=== PATIENT | male | born 1970 | race Caucasian/White ===

== ENCOUNTER 2018-11-19 22:04 | Observation (INO) | END 2018-11-21 15:35 | disposition home or self-care (01) ==

== ENCOUNTER 2019-03-15 02:00 | Inpatient (IN) | payer BC ==
[~2019-03-15] VITALS: Ht 162.6 cm; Wt 75.1 kg
[2019-03-15] VITALS (10 sets, daily range): BP systolic 126–141; BP diastolic 67–80; PULSE 77–127; RESP 18–20; Ht 162.6 cm; Wt 75.1 kg
[~2019-03-15 02:00] MED LIST: ALBU18HF INHALATION; LEVO500T48 PO; MOME220A2 INH; Nicotine (14 Mg/24 Hr) TRANSDERM
--- NOTE | 2019-03-15 06:02 | HP ---
Date/Time of Note Date/Time of Note DATE: 03/15/19 TIME: 05:59 Assessment/Plan VTE Prophylaxis Pharmacological prophylaxis: heparin Lines/Catheters IV Catheter Type (from [facility]): Saline Lock Assessment/Plan Assessment/Plan 49-year-old male with history of asthma transferred from outside facility for asthma exacerbation PLAN -Supplemental oxygen, bronchodilators and steroid -Chest x-ray HPI/ROS Admit Date/Time Admit Date/Time Mar 15, 2019 at 04:47 Hx of Present Illness This is a 48-year-old male with a history of asthma who initially presented to outside hospital complaining of shortness of breath and cough. He was transferred to [facility] for insurance reason. Symptom has been progressively getting worse for the past few days. Symptoms started 4 days ago and has been progressively getting worse. He was admitted by myself 4 months ago. At that time he told me that initial asthma symptoms started 10 years ago when he was in [place], but was not diagnosed with asthma until he immigrated to [place]. At that time he was unable to get Symbicort because of insurance reason and was only using albuterol. PMH/Family/Social Past Medical History Past Surgical Hx: other (see hpi) Family History Significant Family History: no pertinent family hx Social History Alcohol Use: none Smoking Status: Never smoker Drug Use: none Exam Constitutional: other (no acute distress) Neck: supple, non-tender Respiratory: normal air movement Cardiovascular: nl pulses Gastrointestinal: soft Extremities: normal pulses Coded Allergies: No Known Allergy (Unverified , 11/19/18) Social History Smoking Status: Former smoker Exam/Review of Systems Vital Signs Vitals Vital Signs Date Temp Pulse Resp B/P (MAP) Pulse Ox O2 O2 Flow FiO2 Time Delivery Rate 03/15/19 2.0 05:39 03/15/19 98.3 118 20 134/80 93 Nasal 05:16 (98) Cannula TIO AGARWAL MD Mar 15, 2019 06:02
[2019-03-15] MEDS ORDERED: ONDANSETRON 4 MG INJ IV PRN (06:30)
[2019-03-15] MEDS ORDERED: NACL 0.9% 3 ML SYG IV SCH (06:30)
[2019-03-15] MEDS ORDERED: MOMETASONE 0.24 GM INHALER INH ONE (06:30)
[2019-03-15] MEDS ORDERED: METHYLPREDNISOLONE 125 MG INJ IV ONE (06:30)
[2019-03-15] MEDS ORDERED: PROVENTIL HFA 6.7GM INHALER INH SCH (06:30)
[2019-03-15] MEDS ORDERED: ALBUTEROL/IPRATROPIUM (NEB) 3 ML AMP HHN PRN (06:30)
[2019-03-15] MEDS ORDERED: ACETAMINOPHEN 325 MG TAB PO PRN (06:30)
[2019-03-15] MEDS: ALBUTEROL HFA 8 GM INHALER INH SCH ×5 (07:44→21:36)
[2019-03-15] MEDS: NICOTINE (14 MG/24 HR) PATCH TRANSDERM SCH (07:58)
[2019-03-15] MEDS ORDERED: NON-FORMULARY/PATIENT OWN MED ([Nicotine (14 Mg/24 Hr)] 1 PATCH) TRANSDERM SCH (09:00)
[2019-03-15] MEDS ORDERED: GUAIFENESIN/CODEINE 5ML CUP PO PRN (10:30)
[2019-03-15] MEDS: GUAIFENESIN/CODEINE 5ML CUP PO PRN ×2 (10:58→17:14)
[2019-03-15] MEDS: METHYLPREDNISOLONE 125 MG INJ IV SCH (21:20)
[2019-03-15] MEDS: MOMETASONE 0.24 GM INHALER INH SCH (21:37)
[2019-03-15] MEDS ORDERED: HYDROCODONE/APAP (10/325) TAB PO PRN (22:00)
[2019-03-16] VITALS (10 sets, daily range): BP systolic 116–130; BP diastolic 63–76; PULSE 56–92; RESP 16–18
[2019-03-16] MEDS: ALBUTEROL HFA 8 GM INHALER INH SCH ×5 (02:46→16:39)
[2019-03-16] MEDS: METHYLPREDNISOLONE 125 MG INJ IV SCH (08:39)
[2019-03-16] MEDS: MOMETASONE 0.24 GM INHALER INH SCH (08:40)
[2019-03-16] MEDS: NICOTINE (14 MG/24 HR) PATCH TRANSDERM SCH (09:00)
[2019-03-16] MEDS ORDERED: ADV25050 INHALATION (15:49)
[2019-03-16] MEDS ORDERED: IPRA3AMP29 INHALATION (15:49)
[2019-03-16] MEDS ORDERED: MED4DP PO (15:49)
[2019-03-16] MEDS ORDERED: NEBU-27 MC (15:49)
[2019-03-16] MEDS: GUAIFENESIN/CODEINE 5ML CUP PO PRN (15:50)
--- NOTE | 2019-03-16 15:52 | PDOCDIS ---
Discharge Instructions CONDITION [id number] Patient Condition: [id number] Stable HOME CARE INSTRUCTIONS: [id number] Diet Instructions: [id number] Regular OTHER ORDERS: Other Orders: 1. Take medications as per prescription. 2. Take a regular diet as tolerated. 3. Resume activities as tolerated. 4. Please follow-up with your primary care physician in 2 weeks. 5. Please go to the nearest emergency room if you have any worsening shortness of breath, persistent fevers, or any other unusual signs/symptoms. NANCY AL NP Mar 16, 2019 15:52
[2019-03-16] MEDS ORDERED: CODE5LIQ2 PO (16:03)
--- NOTE | 2019-03-16 16:06 | DS ---
Date/Time of Note Date/Time of Note DATE: 03/16/19 TIME: 16:06 Discharge Summary Admission/Discharge Info Admit Date/Time Mar 15, 2019 at 04:47 Discharge Date/Time Discharge Diagnosis 1. Asthma exacerbation. 2. Prior nicotine use. Patient Condition: Stable Procedures CXR IMPRESSION: Unremarkable chest with no discrete infiltrate identified.. Hx of Present Illness This is a 49-year-old male with past medical history of asthma who presented to an outside facility complaining of shortness of breath and cough. The patient was transferred to [facility] because of insurance reasons. The patient underwent a CT scan of the chest at the transferring facility that was negative for any acute infiltrates. Hospital Course The patient was admitted to inpatient setting. He was started on tapering dose of steroids. The patient was started on inhaled bronchodilators, both EVELYN and LABA. The patient has a long-standing history of nicotine use. Therefore, the patient probably has a component of COPD too. The patient verbalized that he quit nicotine use approximately 5 months ago. The patient verbalized improvement in his symptomatology. The patient was maintained on antitussives. The patient was noticed to have a some leukocytosis, probably secondary to steroid use. The patient remained afebrile. There was no indication for any antibiotic therapy. Upon discharge, the patient will be discharged on both EVELYN and LABA. The patient was also given prescription for a nebulizer. The patient had a stable hospital course. The patient is stable to be discharged home. Discharge instructions 1. Take medications as per prescription. 2. Take a regular diet as tolerated. 3. Resume activities as tolerated. 4. Please follow-up with your primary care physician in 2 weeks. 5. Please go to the nearest emergency room if you have any worsening shortness of breath, persistent fevers, or any other unusual signs/symptoms. The patient verbalized understanding of his discharge instructions. The patient was seen in collaboration with Dr. Vásquez. Home Meds Active Scripts Guaifenesin-Codeine Phosphate* (Robitussin* AC) 5 Ml Syrup, 5 ML PO Q4H PRN for COUGH, #1 BOTTLE Prov:NANCY AL NP 03/16/19 Methylprednisolone* (Medrol* DOSE PACK) 4 Mg/Dose-Pack Tab.ds.pk, 4 MG PO . DIRECTED, #1 PACKET Prov:NANCY AL NP 03/16/19 Nebulizer (ALTERA NEBULIZER) 1 Each Each, EACH MC Q6H PRN for SHORTNESS OF BREATH, #1 Prov:NANCY AL OVERHEAD CRANE INSPECTOR 03/16/19 Ipratropium-Albuterol (Ipratropium-Albuterol) 0.5-3 Mg/3 Ml Ampul.neb, 3 ML INHALATION Q6 for sob, #30 VIAL Prov:NANCY AL OVERHEAD CRANE INSPECTOR 03/16/19 Salmeterol Xinaf/Fluticasone* (Advair*) 250-50 Diskus Inhaler, 1 INH INHALATION BID, #1 INHALER Prov:NANCY AL OVERHEAD CRANE INSPECTOR 03/16/19 Albuterol Sulfate* (Ventolin HFA*) 18 Gm Hfa.aer.ad, 2 PUFF INHALATION Q4H, #1 INHALER 4 Refills Prov:GERALDROXANN S. 11/21/18 Discontinued Scripts Levofloxacin* (Levaquin*) 500 Mg Tablet, 500 MG PO DAILY for 5 Days, #5 TAB Prov:ROXANN STEEN S. 11/21/18 Mometasone Furoate (Asmanex) 220 Mcg Aer.pow.ba, 1 PUFF INH BID, #1 INHALER 4 Refills Prov:CELSAROXANN S. 11/21/18 [Nicotine (14 Mg/24 Hr)] 1 PATCH PATCH No Conflict Check, 1 PATCH TRANSDERM DAILY, #1 BOTTLE 2 Refills Prov:GERALDCRISTALP S. 11/21/18 Follow-up Plan Patient to follow-up with his primary care physician in 2 weeks. Primary Care Provider Not On Staff Doctor Time spent on discharge: > 30 minutes Pending Labs Laboratory Tests Test 03/16/19 05:18 White Blood Count 15.8 10^3/ul (4.8-10.8) Red Blood Count 4.87 10^6/ul (4.70-6.10) Hemoglobin 15.2 g/dl (14.0-18.0) Hematocrit 45.3 % (42.0-52.0) Mean Corpuscular Volume 93.0 fl (82.0-101.0) Mean Corpuscular Hemoglobin 31.2 pg (29.0-33.0) Mean Corpuscular Hemoglobin Concent 33.6 g/dl (32.0-37.0) Red Cell Distribution Width 12.4 % (11.5-14.5) Platelet Count 294 10^3/UL (140-415) Mean Platelet Volume 9.6 fl (7.4-10.4) Immature Granulocytes % 0.800 % (0.001-0.429) Neutrophils % 88.2 % (39.0-77.0) Lymphocytes % 7.6 % (15.0-51.0) Monocytes % 3.2 % (0.0-11.0) Eosinophils % 0.0 % (0.0-7.0) Basophils % 0.2 % (0.0-2.0) Nucleated Red Blood Cells % 0.0 /100WBC (0.0-0.0) Immature Granulocytes # 0.130 10^3/ul (0.0-0.031) Neutrophils # 13.9 10^3/ul (1.6-7.5) Lymphocytes # 1.2 10^3/ul (0.8-2.9) Monocytes # 0.5 10^3/ul (0.3-0.9) Eosinophils # 0.0 10^3/ul (0.0-0.5) Basophils # 0.0 10^3/ul (0.0-0.1) Nucleated Red Blood Cells # 0.0 10^3/ul (0.0-0.0) Sodium Level 138 mmol/L (135-144) Potassium Level 4.7 mmol/L (3.5-5.1) Chloride Level 99 mmol/L (97-110) Carbon Dioxide Level 29 mmol/L (21-31) Anion Gap 10 (5-13) Blood Urea Nitrogen 31 mg/dl (7-20) Creatinine 0.87 mg/dl (0.61-1.24) Est Glomerular Filtrat Rate mL/min > 60 mL/min (>60) Glucose Level 137 mg/dl (70-220) Calcium Level 8.9 mg/dl (8.4-10.2) Phosphorus Level 4.5 mg/dl (2.5-4.9) Magnesium Level 2.4 mg/dl (1.7-2.5) NANCY AL NP Mar 16, 2019 16:06
== END 2019-03-16 17:50 | disposition home or self-care (01) | DRG 203 ==
LOC: 6WM 04:47
PROVIDERS: ADMIT Internal Medicine; ATTEND Internal Medicine
PROC: 3E0F7GC Introduction of Other Therapeutic Substance into Respiratory Tract, Via Natural or Artificial Opening (ICD-10-PCS; principal; 2019-03-15)
DX: J45.901 Unspecified asthma with (acute) exacerbation (principal); Z87.891 Personal history of nicotine dependence
CPT/HCPCS: 80048; 80053; 83735; 84100; 85025; 94664; J2930